=== PATIENT | female | born 1990 | race Caucasian/White ===

== ENCOUNTER 2023-10-04 17:13 | Emergency (ER) | payer OTHER ==
[~2023-10-04] VITALS: Ht 160 cm; Wt 80.9 kg
[2023-10-04 21:53] LABS: BASO % 0.2 % (0.0-1.0); EOS # 0.3 10^3/uL (0.0-0.5); EOS % 3.4 % (0.0-3.0); HEMATOCRIT 39.1 % (36.0-47.0); HEMOGLOBIN 13.3 g/dl (12.0-15.5); LYMPH # 3.8 10^3/uL (1.5-5.0); LYMPH % 42.1 % (24.0-44.0); MEAN CORPUSCULAR HEMOGLOBIN 29.6 pg (27.0-33.0); MEAN CORPUSCULAR VOLUME 87.1 fl (80.0-96.0); MONO # 0.5 10^3/uL (0.0-0.8); MONO % 5.2 % (2.0-8.0); NEUTROPHILS # 4.4 10^3/uL (1.5-8.5); NEUTROPHILS % 48.9 % (36.0-66.0); PLATELET COUNT, AUTOMATED 242 10^3/uL (150-450); RED BLOOD COUNT 4.49 10^6/uL (4.00-5.40)
[2023-10-04] MEDS: METOCLOPRAMIDE INJ 10MG/2ML VIAL IV ONE (22:29)
[2023-10-04] MEDS: dexAMETHasone 20MG/5ML VIAL IV ONE (22:29)
[2023-10-04] MEDS: NS 1,000 ML IV ONE (22:29)
[2023-10-04] MEDS: diphenhydrAMINE 50MG/ML VIAL IV ONE (22:29)
[2023-10-04 22:49] LABS: INR 1.01; PARTIAL THROMBOPLASTIN TIME 29.4 SECONDS (24.8-34.2)
[2023-10-05 00:29] VITALS: BP 122/85; TEMP 98.2; O2SAT 98
== END 2023-10-05 01:35 | disposition home or self-care (01) ==
LOC: M ED 21:41
DX: U07.1 COVID-19 (principal); G43.909 Migraine, unspecified, not intractable, without status migrainosus; K21.9 Gastro-esophageal reflux disease without esophagitis; Z86.79 Personal history of other diseases of the circulatory system; Z86.73 Personal history of transient ischemic attack (TIA), and cerebral infarction without residual deficits; Z88.0 Allergy status to penicillin
CPT/HCPCS: 70450; 80047; 85025; 85610; 85730; 87486; 87581; 87633; 87798; 93005; 96361; 96374; 99284; J1100; J1200; J2765

== ENCOUNTER → 2023-10-28 | Outpatient (CLI) | payer OTHER | LOC: M SOG 07:56 | PROVIDERS: ATTEND Physician Assistant | DX: M25.561 Pain in right knee (principal) ==

== ENCOUNTER → 2023-11-04 | Outpatient (CLI) | payer OTHER | LOC: M RAD 08:52 | PROVIDERS: ATTEND Physician Assistant | DX: M25.561 Pain in right knee (principal) ==

== ENCOUNTER 2024-01-12 15:32 | Emergency (ER) | payer OTHER ==
[2024-01-12] MEDS ORDERED: NORE1TAB73 (15:38)
[2024-01-12] MEDS: ACETAMINOPHEN 500 MG TAB PO ONE (16:28)
[2024-01-12 18:00] VITALS: BP 126/79; TEMP 98.1; O2SAT 98
== END 2024-01-12 18:08 | disposition home or self-care (01) ==
LOC: M ED 15:32
DX: R22.41 Localized swelling, mass and lump, right lower limb (principal); I83.811 Varicose veins of right lower extremity with pain; K21.9 Gastro-esophageal reflux disease without esophagitis; F17.200 Nicotine dependence, unspecified, uncomplicated; Z86.79 Personal history of other diseases of the circulatory system; Z88.0 Allergy status to penicillin; Z79.899 Other long term (current) drug therapy

== ENCOUNTER → 2024-01-24 | Outpatient (CLI) | payer OTHER ==
[~2024-01-24] MED LIST: NORE1TAB73; ZITHTAB PO
== END ==
LOC: M RAD 11:07
PROVIDERS: ATTEND Physician Assistant
DX: N93.9 Abnormal uterine and vaginal bleeding, unspecified (principal); N83.201 Unspecified ovarian cyst, right side

== ENCOUNTER 2024-01-29 10:02 | Emergency (ER) | payer OTHER ==
[~2024-01-29] VITALS: Ht 160 cm; Wt 91.9 kg
[~2024-01-29 10:02] MED LIST changes: -ZITHTAB PO
[2024-01-29] MEDS ORDERED: ZITHTAB PO (12:51)
[2024-01-29] MEDS: AZITHROMYCIN 250MG TABLET PO ONE (12:53)
[2024-01-29] MEDS: IBUPROFEN 600MG TAB PO ONE (12:54)
[2024-01-29 12:57] VITALS: BP 134/88; TEMP 97; O2SAT 98
== END 2024-01-29 12:58 | disposition home or self-care (01) ==
LOC: M ED 10:02
DX: J02.0 Streptococcal pharyngitis (principal); B34.8 Other viral infections of unspecified site; M54.50 Low back pain, unspecified; G40.909 Epilepsy, unspecified, not intractable, without status epilepticus; K21.9 Gastro-esophageal reflux disease without esophagitis; Z86.79 Personal history of other diseases of the circulatory system; Z86.73 Personal history of transient ischemic attack (TIA), and cerebral infarction without residual deficits; Z88.0 Allergy status to penicillin; Z88.5 Allergy status to narcotic agent; Z79.2 Long term (current) use of antibiotics

== ENCOUNTER 2024-04-10 16:21 | Emergency (ER) | payer OTHER ==
[~2024-04-10] VITALS: Ht 160 cm; Wt 81.0 kg
[~2024-04-10 16:21] MED LIST changes: +ZITHTAB PO
[2024-04-10] MEDS ORDERED: VENTAER INH (22:04)
[2024-04-10] MEDS ORDERED: CEFD1CAP9 PO (22:04)
[2024-04-10] MEDS ORDERED: BENZ200C70 PO (22:04)
[2024-04-10] MEDS ORDERED: AZIT-12 PO (22:04)
[2024-04-10] MEDS: AZITHROMYCIN 250MG TABLET PO ONE (22:11)
[2024-04-10] MEDS: CEFDINIR 300 MG CAP (OMNICEF) PO ONE (22:11)
[2024-04-10] MEDS: ALBUTEROL 90 MCG/ACT 8GM HFA INHALER INH ONE (22:14)
[2024-04-10 22:18] VITALS: BP 130/75; TEMP 98.2; O2SAT 98
== END 2024-04-10 22:25 | disposition home or self-care (01) ==
LOC: M ED 16:21
DX: J18.9 Pneumonia, unspecified organism (principal); F17.200 Nicotine dependence, unspecified, uncomplicated; Z88.0 Allergy status to penicillin; Z88.8 Allergy status to other drugs, medicaments and biological substances; Z79.52 Long term (current) use of systemic steroids; Z79.2 Long term (current) use of antibiotics; Z79.899 Other long term (current) drug therapy

== ENCOUNTER → 2024-05-04 | Outpatient (CLI) | payer OTHER ==
[~2024-05-04] MED LIST changes: +AZIT-12 PO; +BENZ200C70 PO; +CEFD1CAP9 PO; +VENTAER INH
== END ==
LOC: M RAD 11:53
PROVIDERS: ATTEND Obstetrics & Gynecology
DX: N83.201 Unspecified ovarian cyst, right side (principal)

== ENCOUNTER 2024-05-10 13:35 | Emergency (ER) | payer OTHER ==
[~2024-05-10] VITALS: Ht 160 cm; Wt 81.9 kg
[2024-05-10] MEDS: BENZONATATE 100MG CAPSULE PO ONE (17:14)
[2024-05-10] MEDS: ACETAMINOPHEN TAB 650MG DOSE (2X325MG) PO ONE (17:15)
[2024-05-10] MEDS ORDERED: BENZ200C70 PO (18:19)
[2024-05-10] MEDS ORDERED: FLUTISP (18:19)
[2024-05-10 18:52] VITALS: BP 146/78; TEMP 97.7; O2SAT 98
== END 2024-05-10 19:13 | disposition home or self-care (01) ==
LOC: M ED 13:35
DX: B34.8 Other viral infections of unspecified site (principal); Z91.018 Allergy to other foods; Z88.0 Allergy status to penicillin; Z91.013 Allergy to seafood; Z79.899 Other long term (current) drug therapy

== ENCOUNTER → 2024-06-22 | Outpatient (CLI) | payer OTHER ==
[~2024-06-22] MED LIST changes: +FLUTISP
== END ==
LOC: M SOG 07:28
PROVIDERS: ATTEND Physician Assistant
DX: M25.561 Pain in right knee (principal); Z53.9 Procedure and treatment not carried out, unspecified reason

== ENCOUNTER → 2024-07-08 | Outpatient (CLI) | payer OTHER | LOC: M SOG 07:54 | PROVIDERS: ATTEND Physician Assistant | DX: M25.531 Pain in right wrist (principal); M25.532 Pain in left wrist ==